=== PATIENT | male | born 1990 | race Caucasian/White ===

== ENCOUNTER → 2016-09-01 | Day surgery (SDC) | payer OTHER ==
[~2016-09-01] VITALS: Ht 180.3 cm; Wt 88.5 kg
[~2016-09-01] MED LIST: BUPIVACAINE/EPIN 0.25% 30 ML VIAL As Ordered ONE; GLYCOPYRROLATE INJ 0.2 MG/ML 2 ML VIAL As Ordered ONE; KETOROLAC 60 MG/2 ML VIAL (J1885) As Ordered ONE; LIDOCAINE 2% INJ 100 MG/5 ML SDV (FOR ANES.) As Ordered ONE; LR 1,000 ML IV ONE; LR 1,000 ML IV SCH; MIDAZOLAM INJ 2 MG/2 ML VIAL (J2250) As Ordered ONE; NEOSTIGMINE 1MG/ML 5 ML SYRINGE (J2710) As Ordered ONE; NORCO, ANEXSIA 5/325MG TABLET (HYDROcodone/ACETAMINOPHEN) PO PRN; ONDANSETRON 4MG/2ML VIAL (J2405) As Ordered ONE; ONDANSETRON 4MG/2ML VIAL (J2405) IV PRN; PROPOFOL 200 MG/20 ML VIAL As Ordered ONE; ROCURONIUM BROMIDE 50 MG/5 ML VIAL/SYRINGE As Ordered ONE; VITMTA PO; dexameTHASONE 4 MG/ML 1ML VIAL (J1100) As Ordered ONE; fentaNYL 100 MCG/2 ML INJECTION (J3010) IV PRN; fentaNYL 250 MCG/5 ML INJECTION (J3010) As Ordered ONE
[2016-09-01 14:00] VITALS: BP 121/59
--- NOTE | 2016-09-01 19:29 | RO ---
DATE OF PROCEDURE: 09/01/2016 PREOPERATIVE DIAGNOSIS: Right inguinal hernia. POSTOPERATIVE DIAGNOSIS: Right inguinal hernia. OPERATIVE PROCEDURE: Robotic-assisted right inguinal hernia repair with mesh. SURGEON: Giovanni Kong DO NUTRITION SPECIALIST: Beverly Wesley ANESTHESIA: General ESTIMATED BLOOD LOSS: 5 mL COMPLICATIONS: None. INDICATIONS FOR PROCEDURE: The patient is a 26-year-old male presents with pain and small hernia in the right groin. After careful history and physical, recommendation to proceed with robotic assisted right inguinal hernia repair. Risks and benefits of the procedure not limited to but including bleeding, infection, hernia recurrence, hernia formation, damage to surrounding structures, need for further surgery were discussed in detail with the patient and informed consent was obtained. The procedure was planned. DESCRIPTION OF PROCEDURE: The patient was brought back to operating room 7. After sufficient sedation, the abdomen was sterilely prepped and draped. A Russell catheter was placed. Next, a time-out was done to confirm proper patient and proper procedure. Following that, an 8 mm supraumbilical incision was created. A Veress needle was then placed and the abdomen was insufflated to 15 mmHg. Veress needle was then removed. A 55 mm Optiview port was used to gain access to the abdomen. Once the abdomen was entered, two 8 mm ports were placed in both the left and right midabdomen. The umbilical port was then removed and replaced with a robotic camera port. Next, the robot was docked to the port sites. The instruments were placed under direct visualization. Next, I sat down at the console. The peritoneum overlying the right groin was carefully incised. The preperitoneal space was bluntly dissected. There was a large cord lipoma that was dissected free from the cord structures posteriorly. The dissection was carried medially and laterally, large enough to create a pocket. The hernia sac was carefully dissected free from the rest of the cord structures. Once everything was freed up, both medially, laterally and posteriorly, Bard 3-D Max light mesh was placed inside the abdomen. It was gently manipulated to the preperitoneal space. #0 Vicryl suture was then tied from the mesh onto the pubic symphysis to hold it in place. Next, a #2-0 running barbed suture was used to close the opening in the peritoneum. Once this was finished, the sutures were removed from the abdomen. The abdomen was desufflated. Skin incisions were closed with #4-0 Vicryl subcuticular sutures. The abdomen was cleaned and dry Steri-Strips, 4x4 and tape were applied thus ending procedure.
== END | disposition home or self-care (01) ==
LOC: M SDC 05:59
PROVIDERS: ATTEND Surgery
DX: K40.90 Unilateral inguinal hernia, without obstruction or gangrene, not specified as recurrent (principal)
CPT/HCPCS: 49650; C1781; J0690; J1100; J1885; J2250; J2405; J2710; J3010